=== PATIENT | male | born 1960 | race Caucasian/White ===

== ENCOUNTER 2022-09-27 10:15 | Inpatient (IN) ==
[2022-09-27] MEDS ORDERED: PANTOPRAZOLE BOLUS/DRIP 1 EACH IV STA (10:35)
[2022-09-27] MEDS ORDERED: MoRPHine SULFATE 4 MG/ML 1 ML CARP\\VIAL IV STA (10:35)
[2022-09-27] MEDS ORDERED: PIPERACILLIN/TAZOBACTAM 4.5 GM/120 ML BAG IV ONE (10:35)
[2022-09-27] MEDS ORDERED: PANTOprazole 80 MG in DEXTROSE 5% 100 ML IV ONE (10:35)
[2022-09-27] MEDS ORDERED: ONDANSETRON INJ 2 MG/ML 2 ML VIAL IV STA (10:35)
[2022-09-27 10:51] LABS: iSTAT Creatinine 0.7 mg/dl (0.6-1.3); iSTAT Hemoglobin 14.3 g/dl (14.0-18.0); iSTAT Ionized Calcium 1.05 mmol/l (1.12-1.32); iSTAT Potassium 3.4 mmol/L (3.3-5.0)
[2022-09-27] MEDS ORDERED: OPTIRAY 320 500ml IV ONE (10:54)
[2022-09-27] MEDS ORDERED: PANTOprazole 40 MG in DEXTROSE 5% 100 ML IV SCH (11:00)
--- NOTE | 2022-09-27 11:03 | Emergency Department Note ---
Impression & Plan Sepsis, Pneumonia, Leukocytosis ED Provider Note NAME: BRUCE VYAS AGE: 62 SEX: M : 1960 ARRIVES VIA: Ambulance INFORMANT: Patient ED PROVIDER(S): Ashwin Dodson DO CHIEF COMPLAINT:abdominal pain HPI: Patient is a 62-year-old male who presents to the ER for epigastric abdominal pain. This started within the past 24 hours. Associated with nausea but he is unable to vomit. He notes this feels like his previous time when he had gastric ulcers. He has had dark stools for the past several weeks per . He notes he cannot eat or drink for the past 3 days due to the pain. It is worse with eating or drinking. Denies any dysuria urgency or frequency. He has had an EGD and was found to have multiple ulcers before in the past. No headache or change in vision. No history of A-fib. No shortness of breath arm or jaw pain. PAST MEDICAL HISTORY:See Below PAST SURGICAL HISTORY:See Below FAMILY HISTORY:See Below SOCIAL HISTORY:See Below HOME MEDICATIONS:See Below ALLERGIES:See Below VITALS:See Below PHYSICAL EXAMINATION: GENERAL: Sitting up in bed, alert, well appearing, well nourished, no distress, non-toxic EYE EXAM: normal conjunctiva. PERRL and EOM's grossly intact. OROPHARYNX: mucous membranes are moist NECK: supple, no nuchal rigidity, no adenopathy, non-tender LUNGS: Clear to auscultation. Normal chest wall mechanics HEART: no murmurs, S1 normal and S2 normal ABDOMEN: abdomen soft, ttp in epigastric, normo-active bowel sounds, no masses, no rebound or guarding. RECTAL: Faint heme positive stool UPPER EXTREMITIES: upper extremities are grossly normal. LOWER EXTREMITIES: No pitting edema. NEURO EXAM: Normal sensorium, cranial nerves II-XII grossly intact, normal speech, no gross weakness of arms, no gross weakness of legs. MEDICAL DECISION MAKING: Patient is a 62-year-old male who presents to the ER for abdominal pain. IV was established with work is obtained. Upon arrival he is found to be in new onset A-fib with a rate in the low 100s. He was initially with blood pressures in the low 100s. These do fluctuate intermittently into the 80s. He was given 2 L IV fluids. Do not believe that this is secondary to his rate as his heart rate for the most part has been 120 or less. Do favor the tachycardia is likely secondary to the sepsis with a clear right lobe infiltrate. Labs show leukocytosis of 15,000. No significant anemia. BMP with hyponatremia 127 and a mild hypokalemia 3.1. Potassium was repleted IV. Lactate 1.9. Troponin elevated at 30. Pro-Juan Jose elevated at 17 consistent with likely pneumonia. CT abdomen pelvis showed no other acute pathology. Family was updated at bedside. He was not placed on heparin initially as rectal showed faint heme positive stool. Will defer to the hospitalist for this at this time. Did discuss with Dr. Tomas Mcgee patient's presentation work-up and treatment. Triage Nursing notes reviewed. Limited review of prior medical records performed Vital Signs: reviewed and remarkable for tachycardia and hypotension Differential diagnosis: Differential diagnosis includes etiologies such as sepsis, UTI, pneumonia, metabolic, electrolyte abnormalities, cardiac sources, intracerebral event, toxicologic, neurological, as well as others were entertained. ER treatment provided: See below Diagnostics interpreted by me include EKG and cardiac monitoring as listed be low: -Cardiac Monitoring: An order was placed for continuous cardiac monitoring. The monitor shows a rate of 110 with sinus rhythm. -ECG: A-fib rate of 119 Left axis Right bundle branch block QTc 436 -Laboratory studies:Interpreted by me as stated above in MDM and shown below. Imaging studies: Xrays: As interpreted by me: Portable AP upright 1 view of the chest shows large right upper lobe CTs show: CT abdomen pelvis shows lower lobe infiltrate Consultation(s): Discussed with the hospitalist Dr. Tomas Mcgee for further evaluation management Procedures:none Critical Care: I have personally spent 32 minutes of critical care time in the direct management of this patient. This includes bedside care, interpretation of diagnostic studies, and testing, discussion with consultants, patient, and family members, and other required patient management activities. This 32 minutes is in excess of all separately billable procedures. Past Med/Surg History Medical History GI bleed Social History Smoking Status: Never smoker Preferred Language: Ukrainian Feels Safe at Home: Yes Allergies Allergies Allergy/AdvReac Type Severity Reaction Status Date / Time No Known Allergies Allergy Unverified 08/15/12 18:36 Home Meds Home Medications Medication Instructions Recorded Confirmed ferrous sulfate 325 mg (65 mg 325 mg PO DAILY 09/27/22 09/27/22 iron) tablet omeprazole 40 mg capsule,delayed 40 mg PO BID 09/27/22 09/27/22 release Results & Data (ED) Vital Signs Vital Signs - 24 hr 09/27/22 10:21 09/27/22 10:22 09/27/22 11:08 Temperature 36.8 C Temperature Source Oral Pulse Rate 126 H 115 H Pulse Rate [Apical] 132 H Pulse Rhythm Irregular Pulse Rhythm [Apical] Irregular Respiratory Rate 22 20 Respiratory Effort / Characteristics Spontaneous Spontaneous Respiratory Depth Respiratory Pattern Regular Regular Blood Pressure 97/66 L Blood Pressure [Right Arm] 95/54 L Blood Pressure Mean 76 Blood Pressure Mean [Right Arm] 67 Blood Pressure Position Semi-fowlers Blood Pressure Position [Right Arm] Semi-fowlers Pulse Oximetry 95 94 Oxygen Delivery Method Room Air Room Air Sepsis Recent Fever Within 48 Hours No Sepsis New/Unexplained Change in Mental Status No Sepsis Action Taken by Nursing Physician Notified 09/27/22 12:01 09/27/22 13:00 Temperature Temperature Source Pulse Rate Pulse Rate [Apical] 112 H 111 H Pulse Rhythm Pulse Rhythm [Apical] Irregular Respiratory Rate 18 20 Respiratory Effort / Characteristics Non-Labored Spontaneous Respiratory Depth Normal Respiratory Pattern Regular Blood Pressure Blood Pressure [Right Arm] 93/70 L 83/59 L Blood Pressure Mean Blood Pressure Mean [Right Arm] 77 67 Blood Pressure Position Blood Pressure Position [Right Arm] Semi-fowlers Pulse Oximetry 94 Oxygen Delivery Method Room Air Sepsis Recent Fever Within 48 Hours Sepsis New/Unexplained Change in Mental Status Sepsis Action Taken by Nursing Laboratory Data 09/27/22 10:24 09/27/22 10:24 Lab Results 09/27/22 09/27/22 09/27/22 Range/Units 10:24 10:24 10:24 WBC 15.02 H (4.8-10.8) K/ul RBC 4.53 L (4.70-6.10) M/uL Hgb 13.9 L (14.0-18.0) g/dl POC Hgb (14.0-18.0) g/dl Hct 39.5 L (42.0-52.0) % POC Hct (42-52) % MCV 87.2 (80.0-100.0) fL MCH 30.7 (25.0-34.0) pg MCHC 35.2 (32.0-36.0) g/dL RDW Std Deviation 40.8 (36.4-46.3) fL RDW Coeff of Trevin 12.9 (11.5-14.5) % Plt Count 248 (130-400) K/uL MPV 10.7 (9.4-12.4) fL Immature Gran % (Auto) 3.7 % Neut % (Auto) 86.0 % Lymph % (Auto) 6.2 % [place] % (Auto) 3.8 % Eos % (Auto) 0.0 % Baso % (Auto) 0.3 % Neut # (Auto) 12.92 H (1.40-6.50) K/uL Lymph # (Auto) 0.93 L (1.2-3.4) K/uL [place] # (Auto) 0.57 (0.11-0.59) K/uL Eos # (Auto) 0.00 (0-0.50) K/uL Baso # (Auto) 0.04 (0-0.2) K/uL Immature Gran # (Auto) 0.56 H (0.01-0.20) K/uL POC Sodium (135-144) mmol/L Sodium 127 L (136-145) mmol/L POC Potassium (3.3-5.0) mmol/L Potassium 3.1 L (3.5-5.1) mmol/L POC Chloride (101-112) mmol/L Chloride 89 L (98-107) mmol/L Carbon Dioxide 30 (21-32) mmol/L POC Total CO2 (24-31) mmol/L Anion Gap 8 (3-11) POC Anion Gap (16-25) mmol/L POC BUN (7-18) mg/dl BUN 20 (6-23) mg/dl Creatinine 0.64 (0.6-1.4) mg/dl POC Creatinine (0.6-1.3) mg/dl Est Cr Clr Drug Dosing Not Reportable Est GFR ( Amer) 121.6 ml/min Est GFR (Non-Af Amer) 104.9 ml/min BUN/Creatinine Ratio 31.3 H (10-20) Glucose 116 H (70-99(Fasting)) mg/dl POC Glucose (other) (70-99) mg/dl Osmolality 268 L (280-300) mOsm/kg Lactate (0.4-2.0) mmol/L Calcium 8.5 L (8.6-10.3) mg/dl POC Ioniz Calcium Minh (1.12-1.32) mmol/l Magnesium 1.5 L (1.7-2.4) mg/dl Total Bilirubin 0.6 (0.2-1.0) mg/dl AST 16 (13-39) U/L ALT 22 (7-52) U/L Alkaline Phosphatase 56 (34-104) U/L Troponin I High Sens 30.8 H (0-20) pg/ml Total Protein 5.8 L (6.0-8.3) gm/dl Albumin 3.2 L (3.4-5.0) gm/dl Globulin 2.6 (2.5-4.0) gm/dl Albumin/Globulin Ratio 1.2 (0.9-2) Lipase 19 (11-82) U/L Procalcitonin (0-0.5) ng/ml Urine Color Urine Appearance (Clear) Urine pH (4.5-7.5) Ur Specific [place] (1.000-1.030) Urine Protein (Negative) Urine Glucose (UA) (Negative) Urine Ketones (Negative) Urine Blood (Negative) Urine Nitrite (Negative) Urine Bilirubin (Negative) Urine Urobilinogen (Negative) Ur Leukocyte Esterase (Negative) Urine WBC (Auto) (0-5) /hpf Urine RBC (Auto) (0-4) /hpf U Hyaline Cast (Auto) (0-5) /lpf U Epithel Cells (Auto) (0-5) /lpf Urine Bacteria (Auto) (Negative) SARS-CoV-2 (PCR) (Negative) Influenza Type A (PCR) (Neg) Influenza Type B (PCR) (Neg) RSV (RT-PCR) (Neg) 09/27/22 09/27/22 09/27/22 Range/Units 10:38 11:38 11:38 WBC (4.8-10.8) K/ul RBC (4.70-6.10) M/uL Hgb (14.0-18.0) g/dl POC Hgb 14.3 (14.0-18.0) g/dl Hct (42.0-52.0) % POC Hct 42 (42-52) % MCV (80.0-100.0) fL MCH (25.0-34.0) pg MCHC (32.0-36.0) g/dL RDW Std Deviation (36.4-46.3) fL RDW Coeff of Trevin (11.5-14.5) % Plt Count (130-400) K/uL MPV (9.4-12.4) fL Immature Gran % (Auto) % Neut % (Auto) % Lymph % (Auto) % [place] % (Auto) % Eos % (Auto) % Baso % (Auto) % Neut # (Auto) (1.40-6.50) K/uL Lymph # (Auto) (1.2-3.4) K/uL [place] # (Auto) (0.11-0.59) K/uL Eos # (Auto) (0-0.50) K/uL Baso # (Auto) (0-0.2) K/uL Immature Gran # (Auto) (0.01-0.20) K/uL POC Sodium 127 L (135-144) mmol/L Sodium (136-145) mmol/L POC Potassium 3.4 (3.3-5.0) mmol/L Potassium (3.5-5.1) mmol/L POC Chloride 87 L (101-112) mmol/L Chloride (98-107) mmol/L Carbon Dioxide (21-32) mmol/L POC Total CO2 29 (24-31) mmol/L Anion Gap (3-11) POC Anion Gap 16.0 (16-25) mmol/L POC BUN 21 H (7-18) mg/dl BUN (6-23) mg/dl Creatinine (0.6-1.4) mg/dl POC Creatinine 0.7 (0.6-1.3) mg/dl Est Cr Clr Drug Dosing Est GFR ( Amer) ml/min Est GFR (Non-Af Amer) ml/min BUN/Creatinine Ratio (10-20) Glucose (70-99(Fasting)) mg/dl POC Glucose (other) 117 H (70-99) mg/dl Osmolality (280-300) mOsm/kg Lactate 1.9 (0.4-2.0) mmol/L Calcium (8.6-10.3) mg/dl POC Ioniz Calcium Minh 1.05 L (1.12-1.32) mmol/l Magnesium (1.7-2.4) mg/dl Total Bilirubin (0.2-1.0) mg/dl AST (13-39) U/L ALT (7-52) U/L Alkaline Phosphatase (34-104) U/L Troponin I High Sens (0-20) pg/ml Total Protein (6.0-8.3) gm/dl Albumin (3.4-5.0) gm/dl Globulin (2.5-4.0) gm/dl Albumin/Globulin Ratio (0.9-2) Lipase (11-82) U/L Procalcitonin 17.52 H (0-0.5) ng/ml Urine Color Urine Appearance (Clear) Urine pH (4.5-7.5) Ur Specific [place] (1.000-1.030) Urine Protein (Negative) Urine Glucose (UA) (Negative) Urine Ketones (Negative) Urine Blood (Negative) Urine Nitrite (Negative) Urine Bilirubin (Negative) Urine Urobilinogen (Negative) Ur Leukocyte Esterase (Negative) Urine WBC (Auto) (0-5) /hpf Urine RBC (Auto) (0-4) /hpf U Hyaline Cast (Auto) (0-5) /lpf U Epithel Cells (Auto) (0-5) /lpf Urine Bacteria (Auto) (Negative) SARS-CoV-2 (PCR) (Negative) Influenza Type A (PCR) (Neg) Influenza Type B (PCR) (Neg) RSV (RT-PCR) (Neg) 09/27/22 09/27/22 Range/Units 12:00 12:45 WBC (4.8-10.8) K/ul RBC (4.70-6.10) M/uL Hgb (14.0-18.0) g/dl POC Hgb (14.0-18.0) g/dl Hct (42.0-52.0) % POC Hct (42-52) % MCV (80.0-100.0) fL MCH (25.0-34.0) pg MCHC (32.0-36.0) g/dL RDW Std Deviation (36.4-46.3) fL RDW Coeff of Trevin (11.5-14.5) % Plt Count (130-400) K/uL MPV (9.4-12.4) fL Immature Gran % (Auto) % Neut % (Auto) % Lymph % (Auto) % [place] % (Auto) % Eos % (Auto) % Baso % (Auto) % Neut # (Auto) (1.40-6.50) K/uL Lymph # (Auto) (1.2-3.4) K/uL [place] # (Auto) (0.11-0.59) K/uL Eos # (Auto) (0-0.50) K/uL Baso # (Auto) (0-0.2) K/uL Immature Gran # (Auto) (0.01-0.20) K/uL POC Sodium (135-144) mmol/L Sodium (136-145) mmol/L POC Potassium (3.3-5.0) mmol/L Potassium (3.5-5.1) mmol/L POC Chloride (101-112) mmol/L Chloride (98-107) mmol/L Carbon Dioxide (21-32) mmol/L POC Total CO2 (24-31) mmol/L Anion Gap (3-11) POC Anion Gap (16-25) mmol/L POC BUN (7-18) mg/dl BUN (6-23) mg/dl Creatinine (0.6-1.4) mg/dl POC Creatinine (0.6-1.3) mg/dl Est Cr Clr Drug Dosing Est GFR ( Amer) ml/min Est GFR (Non-Af Amer) ml/min BUN/Creatinine Ratio (10-20) Glucose (70-99(Fasting)) mg/dl POC Glucose (other) (70-99) mg/dl Osmolality (280-300) mOsm/kg Lactate (0.4-2.0) mmol/L Calcium (8.6-10.3) mg/dl POC Ioniz Calcium Minh (1.12-1.32) mmol/l Magnesium (1.7-2.4) mg/dl Total Bilirubin (0.2-1.0) mg/dl AST (13-39) U/L ALT (7-52) U/L Alkaline Phosphatase (34-104) U/L Troponin I High Sens (0-20) pg/ml Total Protein (6.0-8.3) gm/dl Albumin (3.4-5.0) gm/dl Globulin (2.5-4.0) gm/dl Albumin/Globulin Ratio (0.9-2) Lipase (11-82) U/L Procalcitonin (0-0.5) ng/ml Urine Color Yellow Urine Appearance Clear (Clear) Urine pH 6.5 (4.5-7.5) Ur Specific [place] 1.039 H (1.000-1.030) Urine Protein 1+ H (Negative) Urine Glucose (UA) Negative (Negative) Urine Ketones Trace H (Negative) Urine Blood Trace H (Negative) Urine Nitrite Negative (Negative) Urine Bilirubin Negative (Negative) Urine Urobilinogen Negative (Negative) Ur Leukocyte Esterase Negative (Negative) Urine WBC (Auto) 1-5 (0-5) /hpf Urine RBC (Auto) 0-4 (0-4) /hpf U Hyaline Cast (Auto) 0 (0-5) /lpf U Epithel Cells (Auto) 5-10 H (0-5) /lpf Urine Bacteria (Auto) Negative (Negative) SARS-CoV-2 (PCR) NEGATIVE (Negative) Influenza Type A (PCR) Negative (Neg) Influenza Type B (PCR) Negative (Neg) RSV (RT-PCR) Negative (Neg) Administered Medications Pantoprazole Sodium 40 mg/ (Dextrose) 100 mls @ 20 mls/hr IV Q5H NEHA Stop: 10/27/22 10:59 Last Admin: 09/27/22 11:01 Dose: 8 mg/hr, 20 mls/hr Documented By: NA Potassium Chloride (K Robert / Wtr) 10 meq in 100 mls @ 100 mls/hr IV Q1H NEHA Stop: 09/27/22 13:29 Last Admin: 09/27/22 13:03 Dose: 100 mls/hr Documented By: Infusion: 09/27/22 12:44 Dose: 100 mls/hr Documented By: Admin: 09/27/22 11:44 Dose: 100 mls/hr Documented By: NA Doxycycline Hyclate 100 mg/ (Dextrose) 110 mls @ 50 mls/hr IV NOW STA Stop: 09/27/22 13:29 Last Admin: 09/27/22 11:44 Dose: 50 mls/hr Documented By: LOLA Magnesium Sulfate/Dextrose (Magnesium Sulfate / D5w) 1 gm in 100 mls @ 100 mls/hr IV Q1H NEHA Stop: 09/27/22 14:21 Last Admin: 09/27/22 12:50 Dose: 100 mls/hr Documented By: LOLA Discontinued Medications Piperacillin Sod/Tazobactam Sod (Zosyn) 4.5 gm in 120 mls @ 240 mls/hr IV NOW ONE Stop: 09/27/22 11:04 Last Infusion: 09/27/22 11:36 Dose: 0 mls/hr Documented By: Admin: 09/27/22 11:01 Dose: 240 mls/hr Documented By: LOLA Pantoprazole Sodium (Protonix Bolus/Drip) 0 mls @ 1 mls/hr IV ONE STA Stop: 09/27/22 10:36 Last Admin: 09/27/22 11:01 Dose: Not Given Documented By: LOLA Pantoprazole Sodium 80 mg/ (Dextrose) 120 mls @ 400 mls/hr IV NOW ONE Stop: 09/27/22 10:52 Last Infusion: 09/27/22 11:19 Dose: 0 mls/hr Documented By: Admin: 09/27/22 11:01 Dose: 400 mls/hr Documented By: LOLA Sodium Chloride (Nss 1000ml) 1,000 mls @ 999 mls/hr IV .Q1H1M ONE Stop: 09/27/22 12:21 Last Infusion: 09/27/22 13:03 Dose: 0 mls/hr Documented By: Admin: 09/27/22 11:44 Dose: 999 mls/hr Documented By: LOLA Ioversol (Optiray 320 500ml) 94 ml IV ONCE ONE Stop: 09/27/22 10:55 Last Admin: 09/27/22 10:54 Dose: 94 ml Documented By: JOSS Morphine Sulfate (Morphine Sulfate 4 Mg/Ml 1 Ml Carp\Vial) 4 mg IV NOW STA Stop: 09/27/22 10:36 Last Admin: 09/27/22 10:44 Dose: 4 mg Documented By: LOLA Ondansetron HCl (Ondansetron Inj 2 Mg/Ml 2 Ml Vial) 4 mg IV NOW STA Stop: 09/27/22 10:36 Last Admin: 09/27/22 10:44 Dose: 4 mg Documented By: NA Potassium Chloride (Potassium Chloride Crtab 20 Meq Tabcr) 40 meq PO NOW STA Stop: 09/27/22 12:12 Last Admin: 09/27/22 12:33 Dose: 40 meq Documented By: OL Imaging Data Radiologist's Impression: Abdomen/Pelvis CT 09/27/22 10:35 CT OF THE ABDOMEN AND PELVIS WITH CONTRAST CLINICAL HISTORY: Epigastric pain. Black stool. COMPARISON STUDY: CT of the abdomen and pelvis August 15, 2012. TECHNIQUE: Following IV administration of 94 mL of Optiray, axial images of the abdomen and pelvis were obtained from the lung bases to the proximal femurs. Images were reviewed in the axial, sagittal, and coronal planes. IV contrast was administered without complication. Automated exposure control was utilized for the study. A dose lowering technique was utilized adhering to the principles of ALARA. CT DOSE: 902.94 mGy.cm FINDINGS: Right upper lobe consolidation is detected on the car icer tomogram. This is partially imaged on the axial images. Mild emphysema within the lower lungs. No pneumatosis, free air or portal venous gas is present. There is no biliary ductal dilatation status post cholecystectomy. Liver, spleen, adrenal glands and pancreas are unremarkable. There are several renal cysts. A few bilateral renal calculi measure up to 5 mm. There are no ureteral calculi. There is no hydronephrosis. There may be minimal fat stranding adjacent to the lesser curvature of the stomach. There is no extra luminal gas. There is no fluid collection. There is no evidence for a bowel obstruction. The appendix is normal. Dilatation of the left common iliac artery measuring 2.5 cm, is noted. Caliber of the abdominal aorta is normal. There is no lymphadenopathy. There is no ascites. No acute fractures are present. IMPRESSION: 1. Possible minimal flattening adjacent to the lesser curvature of the stomach. This could be seen in setting of gastritis/peptic ulcer disease. No extraluminal gas. No fluid collection. 2. No bowel obstruction. No bowel wall thickening. 3. Extensive right upper lobe consolidation on car icer tomogram. This favors pneumonia. Radiographic follow-up is recommended to ensure resolution. 4. Bilateral nephrolithiasis. ACT 112: Negative or not required by law. Electronically signed by: Stephen Modi M.D. 09/27/2022 11:08 AM Chest X-Ray 09/27/22 10:35 XR chest 1V portable CLINICAL HISTORY: Chest pain. COMPARISON STUDY: Chest radiograph February 18, 2015. FINDINGS: Extensive right upper lobe consolidation is noted. Left lung is clear. There is no pneumothorax or pleural effusion. Patient is mildly rotated. Cardiac size is at the upper limits of normal. IMPRESSION: Extensive right upper lobe consolidation suggestive of pneumonia. Although much less likely, asymmetric pulmonary edema could appear similar. Radiographic follow-up to ensure resolution is recommended. ACT 112: Negative or not required by law. Electronically signed by: Stephen Modi M.D. 09/27/2022 11:23 AM Discharge Plan Visit Data Chief Complaint: Cardiac Assessment Stated Complaint: ABDOMINAL PAIN, SOB, BURPING ED Provider: Ashwin Dodson Discharge Problem: Sepsis, Pneumonia, Leukocytosis Forms Stand Alone Forms: [facility] Prescriptions Prescriptions: No Action omeprazole 40 mg Capsule,Delayed Release(Dr/Ec) 40 mg PO BID ferrous sulfate 325 mg (65 mg iron) Tablet 325 mg PO DAILY Referrals Referrals: PCP,NO [Primary Care Provider] -
[2022-09-27 11:04] LABS: Basophils # (auto) 0.04 K/uL (0-0.2); Basophils % (auto) 0.3 %; Hematocrit (blood only) 39.5 % (42.0-52.0); Hemoglobin 13.9 g/dl (14.0-18.0); Immature Granulocytes # (auto) 0.56 K/uL (0.01-0.20); Immature Granulocytes % (auto) 3.7 %; Lymphocytes # (auto) 0.93 K/uL (1.2-3.4); Lymphocytes % (auto) 6.2 %; Mean Corpuscular Hemoglobin 30.7 pg (25.0-34.0); Mean Corpuscular Hgb Conc 35.2 g/dL (32.0-36.0); Mean Corpuscular Volume 87.2 fL (80.0-100.0); Mean Platelet Volume 10.7 fL (9.4-12.4); Monocytes # (auto) 0.57 K/uL (0.11-0.59); Monocytes % (auto) 3.8 %; Neutrophils # (auto) 12.92 K/uL (1.40-6.50); Platelet Count 248 K/uL (130-400); RDW Coefficient of Variation 12.9 % (11.5-14.5); RDW Standard Deviation 40.8 fL (36.4-46.3); Red Blood Count 4.53 M/uL (4.70-6.10); White Blood Count 15.02 K/ul (4.8-10.8)
[2022-09-27 11:08] LABS: Alanine Aminotransferase 22 U/L (7-52); Albumin Globulin Ratio 1.2 (0.9-2); Albumin Level 3.2 gm/dl (3.4-5.0); Alkaline Phosphatase 56 U/L (34-104); Anion Gap 8 (3-11); Aspartate Aminotransferase 16 U/L (13-39); BUN Creatinine Ratio 31.3 (10-20); Bilirubin,Total 0.6 mg/dl (0.2-1.0); Blood Urea Nitrogen 20 mg/dl (6-23); Calcium 8.5 mg/dl (8.6-10.3); Carbon Dioxide 30 mmol/L (21-32); Chloride 89 mmol/L (98-107); Est GFR (African American) 121.6 ml/min; Est GFR (Non-African American) 104.9 ml/min; Globulin 2.6 gm/dl (2.5-4.0); Glucose 116 mg/dl (70-99(Fasting)); Lipase 19 U/L (11-82); Potassium 3.1 mmol/L (3.5-5.1); Sodium 127 mmol/L (136-145); Total Protein 5.8 gm/dl (6.0-8.3)
--- NOTE | 2022-09-27 11:10 | CT Scan Report ---
CT OF THE ABDOMEN AND PELVIS WITH CONTRAST CLINICAL HISTORY: Epigastric pain. Black stool. COMPARISON STUDY: CT of the abdomen and pelvis August 15, 2012. TECHNIQUE: Following IV administration of 94 mL of Optiray, axial images of the abdomen and pelvis we re obtained from the lung bases to the proximal femurs. Images were reviewed in the axial, sagittal, and coronal planes. IV contrast was administered without complication. Automated exposure control wa s utilized for the study. A dose lowering technique was utilized adhering to the principles of ALARA . CT DOSE: 902.94 mGy.cm FINDINGS: Right upper lobe consolidation is detected on the hospital education coordinator tomogram. This is partially imaged on the axial images. Mild emphysema within the lower lungs. No pneumatosis, free air or portal venous gas is present. There is no biliary ductal dilatation status post cholecystectomy. Liver, spleen, ad renal glands and pancreas are unremarkable. There are several renal cysts. A few bilateral renal calc arabella measure up to 5 mm. There are no ureteral calculi. There is no hydronephrosis. There may be minim al fat stranding adjacent to the lesser curvature of the stomach. There is no extra luminal gas. Ther e is no fluid collection. There is no evidence for a bowel obstruction. The appendix is normal. Dilat ation of the left common iliac artery measuring 2.5 cm, is noted. Caliber of the abdominal aorta is n ormal. There is no lymphadenopathy. There is no ascites. No acute fractures are present. IMPRESSION: 1. Possible minimal flattening adjacent to the lesser curvature of the stomach. This could be seen in setting of gastritis/peptic ulcer disease. No extraluminal gas. No fluid collection. 2. No bowel obstruction. No bowel wall thickening. 3. Extensive right upper lobe consolidation on hospital education coordinator tomogram. This favors pneumonia. Radiographic fo llow-up is recommended to ensure resolution. 4. Bilateral nephrolithiasis. ACT 112: Negative or not required by law. Electronically signed by: Stephen Modi M.D. 09/27/2022 11:08 AM
[2022-09-27 11:13] LABS: Troponin I High Sensitivity 30.8 pg/ml (0-20)
[2022-09-27] MEDS ORDERED: DOXYCYCLINE HYCLATE 100 MG in DEXTROSE 5% 100 ML IV STA (11:18)
[2022-09-27] MEDS ORDERED: SODIUM CHLORIDE 0.9% 1000ML 1,000 ML IV ONE (11:21)
--- NOTE | 2022-09-27 11:25 | XRay Report ---
XR chest 1V portable CLINICAL HISTORY: Chest pain. COMPARISON STUDY: Chest radiograph February 18, 2015. FINDINGS: Extensive right upper lobe consolidation is noted. Left lung is clear. There is no pneumoth orax or pleural effusion. Patient is mildly rotated. Cardiac size is at the upper limits of normal. IMPRESSION: Extensive right upper lobe consolidation suggestive of pneumonia. Although much less lik emiliana, asymmetric pulmonary edema could appear similar. Radiographic follow-up to ensure resolution is recommended. ACT 112: Negative or not required by law. Electronically signed by: Stephen Modi M.D. 09/27/2022 11:23 AM
--- NOTE | 2022-09-27 11:32 | History & Physical Report ---
Date of Service September 27, 2022 Assessment & Plan (1) Community acquired pneumonia: Plan: Zosyn, doxycycline given in the ER. Switch to Unasyn + doxycycline for ongoing treatment. Blood cultures taken and although he meets SIRS criteria suspect this is more due to his a. fib RVR than true sepsis. (2) New onset atrial fibrillation: Plan: Suspect mostly appropriate rate with current pneumonia, likely to have also precipitated episodes. Will hold off any rate controlling medications at this time. Replace electrolytes to aim K > 4, Mg > 2. TTE TSH with AM labs [id number] - 0, anticoagulation deferred. HAS-BLED - 2. Moderate risk of bleeding. (3) Gastric ulcer: Plan: Epigastric pain main reason for visit to the ER. History of this with recent NSAID use. Heme positive stool in ER. Med rec shows he is taking omeprazole however he denies taking any medications to me. Stop NSAIDs. Switch pantoprazole drip to 40mg IV BID. No need for GI consult given normal hemoglobin. Repeat Hgb @ 6pm and tomorrow AM. (4) Hyponatremia: Plan: Suspect due to reduced nutrition over the last 4 days. Will get urine osm/Na to assess for SIADH in setting of PNA. (5) Hypomagnesemia: Plan: Mg level 1.5. Mg sulfate 2g IV ordered in ER with additional 1g IV on ledesma, Repeat level in AM (6) Hypokalemia: Plan: K 3.1 on admission. KCl 20 meq IV ordered by ER provider. Additional 40meq PO now then repeat @ 6pm. Plan VTE Prophylaxis - deferred given concern for GI bleed. Diet - heart healthy Disposition - admit to PCU Admission and Anticipated Discharge Date Admission Date: September 27, 2022 History of Present Illness Chief Complaint: Epigastric pain Primary Care Provider: NO PCP Davian Butcher is a 62 year old male who presents to the ER with epigastric pain. He reports a history of gastric ulcers. Epigastric pain started on Friday night and woke him up. Severity getting worse every day and today pain severity 8/10 on arrival to the ER. Currently 2/10 after morphine given. No radiation. He has been taking ibuprofen 2-3 tablets for the pain regularly over the last 4 days. In the ER CXR was concerning for PNA. He report having chills on Friday but no objective measured fever. He denies any sinus pain, nasal congestion, cough or shortness of breath. He has a history of asthma listed but is not on any inhalers for this. Also in the ER he was noted to be in atrial fibrillation on telemetry. He denies any prior heart problems including atrial fibrillation. No chest pain on exertion, shortness of breath, palpitations, syncope, presyncope or claudication. Allergies Allergy/AdvReac Type Severity Reaction Status Date / Time No Known Allergies Allergy Unverified 08/15/12 18:36 Home Medications Medication Instructions Recorded Confirmed Type ferrous sulfate 325 mg (65 mg 325 mg PO DAILY 09/27/22 09/27/22 History iron) tablet omeprazole 40 mg capsule,delayed 40 mg PO BID 09/27/22 09/27/22 History release Past Med/Surg History Medical History GI bleed Social History Smoking Status: Never smoker Preferred Language: Bahraini Feels Safe at Home: Yes Review of Systems Review of Systems: All systems reviewed & are unremarkable except as noted in HPI & below Physical Exam Constitutional: WD/WN, vitals as above Eyes: PERRL, conjunctivae normal, anicteric sclerae ENMT: external ear and nose normal, oropharynx normal Neck: trachea midline, no thyromegaly Respiratory: normal respiratory effort; no respiratory distress Auscultation: + crackles (right posteriorly upper, anteriorly clear); breath sounds present, no diminished lung sounds and no wheezes Cardiovascular: Rate/Rhythm: + tachycardic and + irregularly irregular Heart Sounds: no murmur Extremities: normal capillary refill; no calf tenderness and no pedal edema Gastrointestinal (Abdomen): normal bowel sounds, soft, nontender, no hepatosplenomegaly Musculoskeletal: no cyanosis or clubbing, extremities motor strength 5/5 Skin: no rashes, warm and dry Neurologic: moves all extremities and awake; not confused Psychiatric: A+Ox3, euthymic affect Results & Data Results & Data Vital Signs (Past 12 Hours) Vital Signs Temp Pulse Pulse Resp BP BP Pulse Ox 09/27/22 11:08 132 H 20 95/54 L 94 09/27/22 10:22 115 H 09/27/22 10:21 36.8 C 126 H 22 97/66 L 95 O2 Del Method 09/27/22 11:08 Room Air 09/27/22 10:22 09/27/22 10:21 Room Air Laboratory Results Abnormal lab results 09/27/22 09/27/22 09/27/22 Range/Units 10:24 10:24 10:38 WBC 15.02 H (4.8-10.8) K/ul RBC 4.53 L (4.70-6.10) M/uL Hgb 13.9 L (14.0-18.0) g/dl Hct 39.5 L (42.0-52.0) % Neut # (Auto) 12.92 H (1.40-6.50) K/uL Lymph # (Auto) 0.93 L (1.2-3.4) K/uL Immature Gran # (Auto) 0.56 H (0.01-0.20) K/uL POC Sodium 127 L (135-144) mmol/L Sodium 127 L (136-145) mmol/L Potassium 3.1 L (3.5-5.1) mmol/L POC Chloride 87 L (101-112) mmol/L Chloride 89 L (98-107) mmol/L POC BUN 21 H (7-18) mg/dl BUN/Creatinine Ratio 31.3 H (10-20) Glucose 116 H (70-99(Fasting)) mg/dl POC Glucose (other) 117 H (70-99) mg/dl Calcium 8.5 L (8.6-10.3) mg/dl POC Ioniz Calcium Minh 1.05 L (1.12-1.32) mmol/l Troponin I High Sens 30.8 H (0-20) pg/ml Total Protein 5.8 L (6.0-8.3) gm/dl Albumin 3.2 L (3.4-5.0) gm/dl Diagnostic Findings XR chest 1V portable CLINICAL HISTORY: Chest pain. COMPARISON STUDY: Chest radiograph February 18, 2015. FINDINGS: Extensive right upper lobe consolidation is noted. Left lung is clear. There is no pneumothorax or pleural effusion. Patient is mildly rotated. Cardiac size is at the upper limits of normal. IMPRESSION: Extensive right upper lobe consolidation suggestive of pneumonia. Although much less likely, asymmetric pulmonary edema could appear similar. Radiographic follow-up to ensure resolution is recommended. CT OF THE ABDOMEN AND PELVIS WITH CONTRAST CLINICAL HISTORY: Epigastric pain. Black stool. COMPARISON STUDY: CT of the abdomen and pelvis August 15, 2012. TECHNIQUE: Following IV administration of 94 mL of Optiray, axial images of the abdomen and pelvis were obtained from the lung bases to the proximal femurs. Images were reviewed in the axial, sagittal, and coronal planes. IV contrast was administered without complication. Automated exposure control was utilized for the study. A dose lowering technique was utilized adhering to the principles of ALARA. CT DOSE: 902.94 mGy.cm FINDINGS: Right upper lobe consolidation is detected on the information systems project manager tomogram. This is partially imaged on the axial images. Mild emphysema within the lower lungs. No pneumatosis, free air or portal venous gas is present. There is no biliary ductal dilatation status post cholecystectomy. Liver, spleen, adrenal glands and pancreas are unremarkable. There are several renal cysts. A few bilateral renal calculi measure up to 5 mm. There are no ureteral calculi. There is no hydronephrosis. There may be minimal fat stranding adjacent to the lesser curvature of the stomach. There is no extra luminal gas. There is no fluid collection. There is no evidence for a bowel obstruction. The appendix is normal. Dilatation of the left common iliac artery measuring 2.5 cm, is noted. Caliber of the abdominal aorta is normal. There is no lymphadenopathy. There is no ascites. No acute fractures are present. IMPRESSION: 1. Possible minimal flattening adjacent to the lesser curvature of the stomach. This could be seen in setting of gastritis/peptic ulcer disease. No extraluminal gas. No fluid collection. 2. No bowel obstruction. No bowel wall thickening. 3. Extensive right upper lobe consolidation on information systems project manager tomogram. This favors pneumonia. Radiographic follow-up is recommended to ensure resolution. 4. Bilateral nephrolithiasis. Medications Administered ER Medications Given: Zosyn 4.5g IV Pantoprazole 80mg IV bolus and 8mg/hr drip Morphine 4mg IV Ondansetron 4mg IV Potassium chloride 10 meq IV x2 Doxycycline 100mg IV NSS 1L bolus ECG Rate (beats per minute): 119 Rhythm: atrial fibrillation Findings: + LAFB and + RBBB Comparison ECG Date: from (Feb 18, 2015) Change: the following changes noted (Atrial fibrillation replaced sinus rhythm, RBBB and LAFB are new) Code Status & VTE Plan Code Status Full VTE Prophylaxis Plan VTE Prophylaxis will be ordered: Yes PG Care Time/CCT Total # of Minutes Spent Total Time Spent with Patient: Total time spent is greater than 50% in coordination of care (as documented) at patient's floor/unit and/or counseling patient: Coding Level of Care Code 18003 INT INP/OBS CARE 3/75MIN Diagnoses Community acquired pneumonia J18.9 New onset atrial fibrillation I48.91 Gastric ulcer K25.9 Hyponatremia E87.1 Hypomagnesemia E83.42 Hypokalemia E87.6
[2022-09-27] MEDS: POTASSIUM CHLORIDE / WTR 10 MEQ/100 ML PLCT IV SCH ×2 (11:44→13:03)
[2022-09-27 12:03] LABS: Magnesium 1.5 mg/dl (1.7-2.4)
[2022-09-27] MEDS ORDERED: POTASSIUM CHLORIDE CRTAB 20 MEQ TABCR PO STA (12:11)
[2022-09-27] MEDS: MAGNESIUM SULFATE / D5W 1 GM/100 ML BAG IV SCH ×4 (12:50→18:19)
[2022-09-27 13:04] LABS: Influenza A virus by PCR Negative (Neg); Influenza B virus by PCR Negative (Neg); RSV by PCR Negative (Neg); SARS CoV2 RNA(COVID-19) Ceph NEGATIVE (Negative)
[2022-09-27 13:05] LABS: Appearance Urine Clear (Clear); Bacteria Urine Automated Negative (Negative); Bilirubin Urine Negative (Negative); Blood Urine Trace (Negative); Cast Urine Automated 0 /lpf (0-5); Color Urine Yellow; Glucose Urine UA Negative (Negative); Ketones Urine Trace (Negative); Leukocyte Esterase Urine Negative (Negative); Nitrite Urine Negative (Negative); Protein Urine 1+ (Negative); RBC Urine Automated 0-4 /hpf (0-4); Specific Gravity Urine 1.039 (1.000-1.030); Urobilinogen Urine Negative (Negative); pH Urine 6.5 (4.5-7.5)
--- NOTE | 2022-09-27 14:52 | Electrocardiogram Report ---
Test Reason : Blood Pressure : / mmHG Vent. Rate : 119 BPM Atrial Rate : 000 BPM P-R Int : 000 ms QRS Dur : 140 ms QT Int : 310 ms P-R-T Axes : 000 -80 080 degrees QTc Int : 436 ms Atrial fibrillation with rapid ventricular response with premature ventricular or aberrantly conducte d complexes Right bundle branch block Left anterior fascicular block Bifascicular block Abnormal ECG When compared with ECG of 18-FEB-2015 09:05, Atrial fibrillation has replaced Sinus rhythm (RBBB and left anterior fascicular block) is now Present Confirmed by Cooper Hall ([id number]) on 09/27/2022 2:51:39 PM Referred By: REFERRED SELF Confirmed By:Cooper Hall
[2022-09-27] MEDS ORDERED: ACETAMINOPHEN 325 MG TAB PO PRN (15:03)
[2022-09-27] MEDS ORDERED: LACTATED RINGER'S 1,000 ML IV ONE (15:03)
[2022-09-27] MEDS ORDERED: Patient's HEIGHT &/or WEIGHT Needed SCH (15:15)
[2022-09-27] MEDS ORDERED: AMPICILLIN/SULBACTAM SOD 3,000 MG in 0.9 % SODIUM CHLORIDE 100 ML IV ONE (15:30)
--- NOTE | 2022-09-27 16:31 | XCELERA ---
[id number]
[2022-09-27 18:17] LABS: Hemoglobin 13.6 g/dl (14.0-18.0); Mean Corpuscular Hemoglobin 31.1 pg (25.0-34.0); Mean Corpuscular Hgb Conc 35.8 g/dL (32.0-36.0); Mean Corpuscular Volume 86.8 fL (80.0-100.0); Mean Platelet Volume 10.5 fL (9.4-12.4); Platelet Count 221 K/uL (130-400); RDW Coefficient of Variation 12.8 % (11.5-14.5); RDW Standard Deviation 40.7 fL (36.4-46.3); Red Blood Count 4.38 M/uL (4.70-6.10); White Blood Count 10.33 K/ul (4.8-10.8)
[2022-09-27 18:33] LABS: BUN Creatinine Ratio 25.9 (10-20); Calcium 8.7 mg/dl (8.6-10.3); Creatinine Clr Calc Pharmacy 139.9 ml/min; Est GFR (African American) 126.6 ml/min; Est GFR (Non-African American) 109.3 ml/min; Potassium 3.8 mmol/L (3.5-5.1)
[2022-09-27] MEDS ORDERED: METOPROLOL TARTRATE 1 MG/ML VIAL IV ONE (18:44)
[2022-09-27] MEDS ORDERED: METOPROLOL TARTRATE 1 MG/ML VIAL IV STA (18:49)
[2022-09-27] MEDS: POTASSIUM CHLORIDE CRTAB 20 MEQ TABCR PO STA ×2 (19:04→19:37)
[2022-09-27] MEDS ORDERED: METOPROLOL TARTRATE 1 MG/ML VIAL IV PRN (20:03)
[2022-09-27] MEDS ORDERED: METOPROLOL TARTRATE 25 MG TAB PO SCH (21:00)
[2022-09-27] MEDS: DOXYCYCLINE HYCLATE 100 MG CAP PO SCH (21:03)
[2022-09-27] MEDS: AMPICILLIN/SULBACTAM SOD 3,000 MG in 0.9 % SODIUM CHLORIDE 100 ML IV SCH (21:04)
[2022-09-27] MEDS: PANTOprazole 40 MG in SYRINGE 0 ML IV SCH (21:04)
[2022-09-27] MEDS: ENOXAPARIN INJ 40 MG/0.4 ML SYR SQ SCH (21:57)
[2022-09-28] MEDS: AMPICILLIN/SULBACTAM SOD 3,000 MG in 0.9 % SODIUM CHLORIDE 100 ML IV SCH ×4 (04:18→22:34)
[2022-09-28 06:45] LABS: Basophils # (auto) 0.01 K/uL (0-0.2); Basophils % (auto) 0.1 %; Hematocrit (blood only) 38.1 % (42.0-52.0); Hemoglobin 13.4 g/dl (14.0-18.0); Immature Granulocytes # (auto) 0.05 K/uL (0.01-0.20); Immature Granulocytes % (auto) 0.5 %; Lymphocytes # (auto) 1.02 K/uL (1.2-3.4); Mean Corpuscular Hemoglobin 30.3 pg (25.0-34.0); Mean Corpuscular Hgb Conc 35.2 g/dL (32.0-36.0); Mean Corpuscular Volume 86.2 fL (80.0-100.0); Mean Platelet Volume 10.4 fL (9.4-12.4); Monocytes # (auto) 0.39 K/uL (0.11-0.59); Monocytes % (auto) 4.2 %; Neutrophils # (auto) 7.82 K/uL (1.40-6.50); Neutrophils % (auto) 84.2 %; Platelet Count 256 K/uL (130-400); RDW Coefficient of Variation 13.1 % (11.5-14.5); RDW Standard Deviation 41.4 fL (36.4-46.3); Red Blood Count 4.42 M/uL (4.70-6.10); White Blood Count 9.29 K/ul (4.8-10.8)
[2022-09-28] MEDS: DOXYCYCLINE HYCLATE 100 MG CAP PO SCH (07:53)
[2022-09-28] MEDS: PANTOprazole 40 MG in SYRINGE 0 ML IV SCH ×2 (07:53→22:51)
[2022-09-28] MEDS ORDERED: CALCIUM CARBONATE 500 MG CHEWABLE TAB PO PRN (08:01)
[2022-09-28 08:10] LABS: Calcium 8.8 mg/dl (8.6-10.3); Magnesium 1.9 mg/dl (1.7-2.4); Potassium 3.7 mmol/L (3.5-5.1)
[2022-09-28 08:16] LABS: BUN Creatinine Ratio 18.5 (10-20); Creatinine Clr Calc Pharmacy 124.5 ml/min; Est GFR (African American) 120.8 ml/min; Est GFR (Non-African American) 104.3 ml/min
--- NOTE | 2022-09-28 08:30 | Hospitalist Progress Note ---
Date of Service September 28, 2022 Assessment & Plan (1) Community acquired pneumonia: Plan: acute unclear if stable RUL infiltrate, Unasyn + doxycycline for ongoing treatment. Blood cultures taken and although he meets SIRS criteria suspect this is more due to his a. fib RVR than true sepsis. On further questioning this patient was probably a 30-year smoker sometimes heavy at times and he had exposure to TB and when he was first his had TB and was treated for 9 months with therapy. Reportedly at that time he had some skin testing done which was unrevealing and he was released without further surveillance or adjunctive treatment To this and the patient will be put in isolation while the quant Farren gold sent, atypical coverage would be provided by doxycycline although not traditional will change to azithromycin, patient will have a Legionella urine sent (2) New onset atrial fibrillation: Plan: Chronic unstable upon further questioning the patient's had atrial fibrillation for approximately 30 years he chooses not to have any treatment for it is having higher heart rates likely physiologic stressors, blood pressure limits rate control, given heart rates in the 130s to 150s we will try intravenous digoxin given his blood pressure is lower and will make me limit other agents that have chronotropic effects Echocardiogram shows normal LV function no wall motion abnormalities mild TR TSH normal [id number] - 0, anticoagulation deferred. HAS-BLED - 2. Moderate risk of bleeding. (3) Gastric ulcer: Plan: Chronic and stable GERD, acute epigastric pain now resolved, this was the main reason for visit to the ER. History of this with recent NSAID use. Heme positive stool in ER. Med rec shows he is taking omeprazole however he denies taking any medications Stop NSAIDs. Switched pantoprazole drip to 40mg IV BID. Plan VTE Prophylaxis -chemoprophylaxis deferred by patient Admission and Anticipated Discharge Date Admission Date: September 27, 2022 Subjective Patient has a nonproductive cough he feels much improved from when he came in no other signs or symptoms of recent weight loss he has had occasional mild loose bowel movements which is unusual for him Physical Exam Physical Exam: Physically his heart is irregular and tachycardic at times consistent with his past history of atrial fibrillation His lungs are relatively clear he may have some increased bronchial breath sound s in the right upper lobe but nothing is like absent breath sounds no egophony no dullness His abdomen is without organomegaly soft and nontender Results & Data Results & Data Vital Signs (Past 12 Hours) Vital Signs Temp Pulse Pulse Resp BP BP Pulse Ox 09/28/22 08:01 98.6 F 108 H 18 91/71 L 91 09/28/22 06:17 110 H 16 92/56 L 81/61 L 97 09/28/22 05:13 145 H 101/75 09/28/22 02:53 98.6 F 99 H 20 88/70 L 91 09/28/22 01:55 132 H 09/28/22 01:54 144 H 14 95/71 L 97 09/27/22 23:00 101 H 09/27/22 22:37 97.7 F 113 H 20 93/70 L 90 09/27/22 21:44 108 H 16 91/50 L 09/27/22 21:17 105 H 83/69 L 09/27/22 21:14 115 H 79/66 L 80/56 L O2 Del Method 09/28/22 08:01 Room Air 09/28/22 06:17 Room Air 09/28/22 05:13 09/28/22 02:53 Room Air 09/28/22 01:55 09/28/22 01:54 Room Air 09/27/22 23:00 09/27/22 22:37 Room Air 09/27/22 21:44 09/27/22 21:17 09/27/22 21:14 Laboratory Results Reviewed CBC reviewed PRP reviewed urinalysis PG Care Time/CCT Total # of Minutes Spent Total Time Spent with Patient: Total time spent is greater than 50% in coordination of care (as documented) at patient's floor/unit and/or counseling patient: Coding Level of Care Code 46261 SUB INP/OBS CARE 3/50MIN Diagnoses Community acquired pneumonia J18.9 New onset atrial fibrillation I48.91 Gastric ulcer K25.9
[2022-09-28] MEDS ORDERED: SODIUM CHLORIDE 0.9% 1000ML 1,000 ML IV SCH (09:00)
[2022-09-28] MEDS ORDERED: DIGOXIN 250 MCG in SYRINGE 9 ML IV ONE (12:30)
[2022-09-28] MEDS ORDERED: AZITHROMYCIN 250 MG TAB PO ONE (12:46)
[2022-09-28] MEDS ORDERED: DIGOXIN 250 MCG in SYRINGE 9 ML IV SCH (16:00)
[2022-09-28] MEDS: ENOXAPARIN INJ 40 MG/0.4 ML SYR SQ SCH (22:33)
[2022-09-29] MEDS: AMPICILLIN/SULBACTAM SOD 3,000 MG in 0.9 % SODIUM CHLORIDE 100 ML IV SCH (03:57)
[2022-09-29] MEDS: PANTOprazole 40 MG in SYRINGE 0 ML IV SCH (08:32)
[2022-09-29] MEDS ORDERED: AZITHROMYCIN 250 MG TAB PO SCH ×2 (09:00→10:30)
[2022-09-29] MEDS ORDERED: PHARMACIST DISCHARGE MED REC CONSULT PRN (09:51)
[2022-09-29] MEDS ORDERED: DIGOXIN 0.125 MG TAB PO ONE (09:54)
--- NOTE | 2022-09-29 10:03 | Discharge Summary ---
Date of Service September 29, 2022 Admission HPI Per Admitting Provider Davian Butcher is a 62 year old male who presents to the ER with epigastric pain. He reports a history of gastric ulcers. Epigastric pain started on Friday night and woke him up. Severity getting worse every day and today pain severity 8/10 on arrival to the ER. Currently 2/10 after morphine given. No radiation. He has been taking ibuprofen 2-3 tablets for the pain regularly over the last 4 days. In the ER CXR was concerning for PNA. He report having chills on Friday but no objective measured fever. He denies any sinus pain, nasal congestion, cough or shortness of breath. He has a history of asthma listed but is not on any inhalers for this. Also in the ER he was noted to be in atrial fibrillation on telemetry. He denies any prior heart problems including atrial fibrillation. No chest pain on exertion, shortness of breath, palpitations, syncope, presyncope or claudication. Principal Diagnosis Right upper lobe pneumonia (previous tuberculosis exposure) pending QuantiFERON gold send out testing Acute on chronic atrial fibrillation patient agreeable to take metoprolol at home Discharge Exam Patient converted to sinus rhythm rate around 100 Cardiac exam is tachycardic but regular there are no murmurs Lungs have very little lung change may be some bronchial breath sounds in the right upper lobe Discharge Data Allergies Allergy/AdvReac Type Severity Reaction Status Date / Time No Known Allergies Allergy Unverified 08/15/12 18:36 Consultations 09/27/22 11:23 ED Decision to Admit Stat 09/29/22 09:54 [facility] or tape librarian Routine Ordered Studies 09/27/22 10:35 CT Abd and Pelvis [CT abd pelvis IV con only] Stat Hospital Course (1) Community acquired pneumonia: Patient was seen on azithromycin, recommend PCP follow-up will be assigned to PCP outpatient chest x-ray for resolution On further questioning this patient was probably a 30-year smoker sometimes heavy at times and he had exposure to TB and when he was first his had TB and was treated for 9 months with therapy. Reportedly at that time he h ad some skin testing done which was unrevealing and he was released without further surveillance or adjunctive treatment To this and the patient quantiferon gold sent, atypical coverage would be pro vided by azithromycin, patient also did have a Legionella urine antigen sent which is pending at discharge (2) New onset atrial fibrillation: Chronic unstable upon further questioning the patient's had atrial fibrillation for approximately 30 years in the past he declined treatment however he is agreeable to medication he has been on metoprolol here in the hospital will prescribe metoprolol succinate 50 mg once a day. Echocardiogram shows normal LV function no wall motion abnormalities mild TR TSH normal [id number] - 0, anticoagulation deferred. HAS-BLED - 2. Moderate risk of bleeding. (3) Gastric ulcer: Chronic and stable GERD, acute epigastric pain now resolved, this was the main reason for visit to the ER. History of this with recent NSAID use. Heme positive stool in ER. Med rec shows he is taking omeprazole Plan Patient's pharmacy is closed for the therefore we will try to dispense his antibiotics for Friday and hopefully he can slate picker the remainder of his antibiotics and his metoprolol on Friday Total Time Total Time Spent Total Time Spent (In Minutes): It required greater than 30 minutes to prepare this patient for discharge Discharge Plan Discharge Items Patient Disposition: Home - Self-Care Reason For Visit: NEW ONSET AFIB, PNA Discharge Diagnosis: right upper lobe pneumonia acute worsening of chronic atrial fibrillation Activity: Resume your previous activity Non-emergency contact: Primary Care Provider Call non-emergency contact if: your symptoms worsen Follow-up/Referrals: PCP,NO [Primary Care Provider] - Diet: Regular Addtl Attending Provider Instructions: You have been diagnosed with a pneumonia your history of having tuberculosis exposures prompted us to send for additional tuberculosis test which at this time is not resulted back probably return to your family doctor please follow-up with your family doctor for the results of this test and also to have a repeat chest x-ray to be sure that your pneumonia has cleared We will be receiving a phone call this week to establish care with a primary care doctor in the [place] area which hopefully is closer to her home With regard to your rapid irregular heartbeat, this is called atrial fibrillation, you will be given a medication called metoprolol extended release 1 pill a day Your family doctor will also follow-up with this medication for you The irregular heartbeat you have does place you at increased risk of stroke however at this point time you do not meet criteria to take a blood thinner daily that may change as you age please discuss this matter with your family doctor Pending Studies at Discharge: Yes Stand-Alone Forms: [facility], Smoking Cessation Medications and DC Order Prescriptions: New azithromycin 250 mg Tablet 250 mg PO QAM Qty: 4 0RF metoprolol succinate 50 mg tablet extended release 24 hr 50 mg PO DAILY Qty: 30 4RF Continued omeprazole 40 mg Capsule,Delayed Release(Dr/Ec) 40 mg PO BID ferrous sulfate 325 mg (65 mg iron) Tablet 325 mg PO DAILY Discharge Orders: Discharge Order (Routine); Ordered 09/29/22 Ordered By: Erick Abarca Admission Data Admit Date/Time: 09/27/22 11:35 Attending Provider: Erick Abarca Admit Provider: Tomas Mcgee Primary Care Provider: PCP,NO Other Providers: Tomas Mcgee Coding Level of Care Code 66645 INP/OBS DISCH >30 MIN Diagnoses Community acquired pneumonia J18.9 New onset atrial fibrillation I48.91 Gastric ulcer K25.9
== END 2022-09-29 12:21 | disposition home or self-care (01) | DRG 194 ==
LOC: ED 10:15 → 2E 11:35 → SUATTDRO 11:35 → 2E 14:14
DX: Z87.891 Personal history of nicotine dependence; E87.1 Hypo-osmolality and hyponatremia; K25.9 Gastric ulcer, unspecified as acute or chronic, without hemorrhage or perforation; J18.9 Pneumonia, unspecified organism; Z20.1 Contact with and (suspected) exposure to tuberculosis; E87.6 Hypokalemia; I48.20 Chronic atrial fibrillation, unspecified; E83.42 Hypomagnesemia